=== PATIENT | female | born 1925 | race Caucasian/White ===

== ENCOUNTER 2016-09-11 10:34 | Day surgery (SDC) | payer BC ==
[2016-09-04 15:27] VITALS: BMI 22.0
[~2016-09-11] VITALS: Ht 157.5 cm; Wt 55.5 kg
[~2016-09-11 10:34] MED LIST: ACET-1256 PO; ASPI81TA28 PO; ATOR-22 PO; ATROPINE SULFATE 0.1 MG/ML 5ML SYR IV PRN; CALC600T9 PO; CARV3.122 PO; CEFAZOLIN 1000MG/55 ML D5W IV SCH; CLB/200 PO; EpHEDrine SULFATE INJ 50 MG/ML AMP IV PRN; FENTANYL CITRATE INJ 50 MCG/1 ML 2 ML VIAL IV PRN; FERR1TAB13 PO; FLUT0.15 NAE; FURO-85 PO; HYDR-4717 PO; ISOS-11 PO; MAGN400T6 PO; METF750T PO; MULT-506 PO; NTRGSL/4 UT; OMEG10007 PO; ONDANSETRON INJ 2 MG/ML 2 ML VIAL IV PRN; PANT40TA PO; PYRI60TA3 PO
[2016-09-11 11:00] VITALS: BP 171/51; PULSE 85; TEMP 36.6; O2SAT 98; Ht 157.5 cm; Wt 55.5 kg
--- NOTE | 2016-09-11 12:30 | History & Physical Bridge Note ---
H&P Re-Evaluation Bridge Note: I have examined the patient, reviewed the History & Physical and in the interval since the performance of the History & Physical I have noted the following changes of clinical significance: ASA 3
[2016-09-11] MEDS ORDERED: LIDOCAINE/EPINEPHRINE 1% 20 ML VIAL ONE (12:36)
[2016-09-11] MEDS ORDERED: POVIDONE-IODINE OP SOLN 30 ML BTL ONE (12:59)
[2016-09-11] MEDS ORDERED: BUPIVACAINE 0.25% 30 ML VIAL ONE (14:04)
--- NOTE | 2016-09-11 15:42 | [facility] Post Operative Brief Note ---
Immediate Operative Summary Operative Date Sep 11, 2016. Pre-Operative Diagnosis Basal Cell Carcinoma of Left Cheek Post-Operative Diagnosis Basal Cell Carcinoma of Left Cheek Procedure(s) Performed Excision of Basal Cell Carcinoma of the Left Cheek, frozen sections, Full Thickness Skin Graft Surgeon Dr. Delia Galdamez Blueprinting Machine Operator Surgeon(s) Mireya Demarco [id number] Estimated Blood Loss 10 Specimens Frozen Specimens-see nursing notes Anesthesia local Complication(s) None Disposition Recovery Room / PACU
[2016-09-11 15:47] VITALS: BP 152/59; PULSE 95; TEMP 37.2; O2SAT 93
--- NOTE | 2016-09-11 16:05 | Discharge Instructions-SurgCtr ---
Discharge Instructions Date of Service Sep 11, 2016. Visit Reason for Visit: Basal Cell Carcinoma Of Skin On Face Discharge Discharge Diagnosis / Problem: basal cell carcinoma left cheek Discharge Goals Goal(s): Decrease discomfort, Improve function Medications Restart Stopped Medication(s): Resume aspirin in 48 hours Activity Recommendations Activity Limitations: resume your previous activity Lifting Limitations: no more than 5 pounds Anesthesia . Post Anesthesia Instructions: If you have had General Anesthesia or IV Sedation: * Do not drive today. * Resume driving when surgeon permits. * Do not make important decisions or sign legal documents today. * Call surgeon for: 1. Temperature elevations greater than 101 degrees F. 2. Uncontrollable pain. 3. Excessive bleeding. 4. Persistent nausea and vomiting. 5. Medication intolerance (nausea, vomiting or rash). * For nausea and vomiting use only clear liquids such as: tea, soda, bouillon until nausea subsides, then gradually increase diet as tolerated. * If you have any concerns or questions, call your surgeon's office. If physician is unavailable and it is an emergency, call 911 or go to the nearest emergency room. . Instructions / Follow-Up Instructions / Follow-Up ACTIVITY RECOMMENDATIONS: _x_Normal activities _x_No bending, lifting or straining _x_No driving __Driving allowed when you are off pain medications _x_Walking permitted __You should have help at home for ___ days DRESSINGS: _x_No dressings required- may remove outer gauze and re-cover if desired; yellow dressing and cotton to remain in place __Keep dressings dry/in place until first office visit __Remove dressings ___ and leave dressings off x__Apply ice __2_ days __Remove dressings and reapply garment __Apply antibiotic ointment (Bacitracin, Neosporin, etc) to wounds 3-4 times/ day for 10 days BATHING: _x_Keep dressings dry _x_Sponge bathing permitted __Showering permitted __No swimming, hot tubs or soaking in a tub MEDICATIONS: Resume previous medications unless instructed otherwise by your surgeon. _x_Do not use Motrin, Advil or Ibuprofen as these may promote bleeding. Please use Tylenol. __Prescription(s) provided: OTHER INSTRUCTIONS: __Record drain output 2-3 times per day SPECIAL CARE INSTRUCTIONS: * It is normal to have a mild fever after surgery. If your temperature is higher than 101.5 degrees F, please call the office at [phone]. * Constipation is a typical side effect of pain medication. An over-the- counter stool softener will help relieve this. * Leaking around surgical drains may occur and should not cause concern. Sometimes these drains become clogged. If this happens, remove the bulb and milk the clot out of the tube, then replace the bulb. * Drainage from wounds after liposuction is normal and should be expected. Garments will become soiled. You should protect furniture and bedding. This drainage should mostly subside within 2-3 days. Leave garments in place unless instructed to remove them. * If you have unusual drainage from a wound or are concerned you have an infection or have any questions or concerns, please call the office at [phone]. FOLLOW UP VISIT: If not already scheduled, please call the office, , when you return home after surgery to schedule an appointment to be seen in _5-7__ days. Diet Recommendations Home Diet: no limitations, resume previous diet Procedures Procedures Performed: Excision of Basal Cell Carcinoma of the Left Cheek, frozen sections, Full Thickness Skin Graft Pending Studies Studies pending at discharge: no Medical Emergencies . Who to Call and When: Medical Emergencies: If at any time you feel your situation is an emergency, please call 911 immediately. . Non-Emergent Contact Non-Emergency issues call your: Primary Care Provider, Surgeon any issues other than concern for bleeding, infection or wound problems . . "Provider Documentation" section prepared by Delia Galdamez. [place] Drug Monitoring Program Search Results: patient reviewed within database, no issues identified
[2016-09-11] MEDS ORDERED: FUROSEMIDE 20 MG TAB PO STA (16:10)
[2016-09-11 16:15] VITALS: BP 145/78; PULSE 86; TEMP 36.4; O2SAT 95
--- NOTE | 2016-09-13 16:10 | OPERATIVE REPORT ---
DATE OF OPERATION: 09/11/2016 PREOPERATIVE DIAGNOSIS: Left cheek basal cell carcinoma. POSTOPERATIVE DIAGNOSIS: Same. PROCEDURE: Excision of basal cell carcinoma, left cheek with frozen section and reconstruction with full thickness skin graft. SURGEON: Dr. Delia Galdamez. CRM DEVELOPER: None. ANESTHESIA: Local. COMPLICATIONS: None. 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 She had previously been evaluated by Mohs surgeon, but opted not to have this procedure done and instead was referred to dc for excision with frozen section. BRIEF DESCRIPTION OF THE PROCEDURE: The risks, benefits and alternatives of the procedure were explained to the patient, who agreed and signed consent. She was identified and marked in the preoperative holding area. She was brought to the operating room, where she was positioned supine. Surgical site was prepped and draped sterilely. A time-out procedure was performed. I began by marking what I felt clinically with margins of the lesion. 1% lidocaine with epinephrine mixed with 0.25% Marcaine plain was used to anesthetize the area. A 15-blade scalpel was used to make the circular skin incision. The lesion was excised using a 15-blade scalpel. During removal of the lesion, the lesion was so friable, I was unable to adequately resect the deep margin. Due to the friability and apparent deeper tumor, I sent this initial specimen for pathology and then proceeded to take additional margins to send for frozen section. The lesion initial specimen was noted to be infiltrative carcinoma extending to the deep margin and 9 o'clock side of the specimen. Additional margins were sent including the 12-3 o'clock margin, 8-10 o'clock margin and 11-1 o'clock margin as well as a reexcision of the deep margin. I spoke with the pathologist following this excision and subsequently reexcised the deep margin as this was still positive. At this point, the deep margin excision included subcutaneous fat as well as underlying muscle and orbital septum. Due to additional positive margins, I re-resected the 7-11 o'clock margin as well as the 12-6 o'clock margin and the deep margin as well. Following this, margins were noted to be negative. At the completion of resection, the wound defect measured 5 x 3 cm in diameter and extended quite deep down to thin layer of orbicularis muscle and overlying the orbital rim with orbital rim periosteum and some minimal soft tissue covering. The defect extended onto the lateral left nose as well as along the orbital rim and tear troughs and within 5 mm of the ciliary margin on the left lower lid with exposed orbital septum. At this point, I considered options for wound closure. Given the large size of this defect in fact that this procedure is being performed under local anesthesia as well as the possibility given the large resection performed that final section might show positive margins, I elected to proceed with full thickness skin grafting. This was harvested from the patient's right supraclavicular area as she has a history of radiation to the left supraclavicular area. A graft was pinched and marked in the right supraclavicular area and 1% lidocaine with epinephrine mixed with 0.25% Marcaine plain was used to anesthetize the graft harvest site. A 15-blade scalpel made the elliptical incision. The graft was excised as a full thickness graft using a 15-blade scalpel. Hemostasis was achieved with electrocautery. Wound was reapproximated using 3-0 Vicryl deep dermal sutures and 3-0 Monocryl running subcuticular suture. Dermabond was applied. The graft was then defatted using a curved iris scissor and was inset into the defect using 4-0 chromic to tack the midportion of the graft down to orbital rim periosteum. The graft was then trimmed using a curved iris scissor and inset using 4-0 silk tie over bolster sutures as well as 5-0 chromic interrupted skin sutures around the periphery. Minimal sutures were placed along the left lower lid in order to try to prevent ectropion. A bolster dressing consisting of Xeroform and sterile cotton was placed over the graft and tied down using the silk sutures. Following this, there was no evidence of ectropion and therefore, I did not elect to place a Hernandez suture. The procedure was tolerated well. The patient was transferred to recovery in satisfactory condition. I attest to the content of the Intraoperative Record and any orders documented therein. Any exceptio ns are noted below.
== END 2016-09-11 16:40 | disposition home or self-care (01) ==
LOC: C.ACU 10:34
PROVIDERS: ATTEND Plastic Surgery
DX: C44.310 Basal cell carcinoma of skin of unspecified parts of face (principal); E11.9 Type 2 diabetes mellitus without complications; I10 Essential (primary) hypertension; Z85.3 Personal history of malignant neoplasm of breast; Z90.710 Acquired absence of both cervix and uterus; Z79.82 Long term (current) use of aspirin